=== PATIENT | male | born 1980 | race Caucasian/White ===

== ENCOUNTER → 2018-04-11 | Outpatient (CLI) | payer OTHER | LOC: CIMAGING 09:58 | PROVIDERS: ATTEND Family Medicine | DX: E04.1 Nontoxic single thyroid nodule (principal) | CPT/HCPCS: 76536-PO ==

== ENCOUNTER → 2018-04-25 | Outpatient (CLI) | payer OTHER ==
[~2018-04-25] MED LIST: LIDOCAINE 1% 300 MG/30 ML SDV ONE
--- NOTE | 2018-04-25 09:25 | PDRADPN ---
Radiology Procedure Note Date of Procedure: 04/25/18 Radiologist: Eduardo Rosenberg Anesthesia: Local (Specify) Pre-op Diagnosis: solid right thyroid nodule Post-op Diagnosis: same Indication: dx Procedure: fna Finding(s): Four 25G passess made under US guidance. specimens adequate. Inf/Abcess present in the surg proc area at time of surgery?: No Complications: none Specimen(s): yes
== END ==
LOC: FIMAGING 08:22
PROVIDERS: ATTEND Family Medicine
PROC: 0G9K3ZX Drainage of Thyroid Gland, Percutaneous Approach, Diagnostic (ICD-10-PCS; principal; 2018-04-25)
DX: E04.1 Nontoxic single thyroid nodule (principal)

== ENCOUNTER → 2019-05-22 | Outpatient (CLI) | payer OTHER | LOC: EMCIMAGING 07:11 ==